=== PATIENT | female | born 1930 | race Native Hawaiian/Other Pacific Islander ===

== ENCOUNTER 2017-03-26 14:31 | Outpatient (CLI) | payer OTHER, MEDICARE ==
[~2017-03-26 14:31] MED LIST: CITA20TA2 PO; DILTIAZEM240 M1 PO; METF500T PO; METOPROLOL25 M1 OR; SIMV20TA2 PO; WARF5TAB6 PO
[2017-03-26] MEDS ORDERED: ALPR0.2566 PO (14:54)
== END 2017-03-26 14:40 | disposition short-term general hospital (02) ==
LOC: AMB 14:31
DX: R00.2 Palpitations (principal)
CPT/HCPCS: A0425; A0427

== ENCOUNTER 2017-03-26 14:49 | Emergency (ER) | payer OTHER, MEDICARE ==
[~2017-03-26] VITALS: Ht 160 cm; Wt 68.9 kg
[2017-03-26 14:40] VITALS: TEMP 98.3
[2017-03-26] MEDS ORDERED: ALPR0.2566 PO (14:54)
[2017-03-26 15:29] LABS: PLATELET COUNT 226 K/uL (152-353)
[2017-03-26 15:33] LABS: POTASSIUM 3.2 mmol/L (3.6-5.2)
[2017-03-26 15:37] LABS: PARTIAL THROMBOPLASTIN TIME 27.8 SECONDS (24.5-33.6)
[2017-03-26 17:00] VITALS: BP 177/83
== END 2017-03-26 17:00 | disposition home or self-care (01) ==
LOC: ED 14:49
DX: R00.0 Tachycardia, unspecified (principal); R06.02 Shortness of breath
CPT/HCPCS: 36415; 80053; 81000; 82550; 84484; 85027; 85610; 85730; 93005; 96374; 99284; J3490

== ENCOUNTER 2018-09-20 11:21 | Inpatient (IN) | payer OTHER ==
[~2018-09-20 11:21] MED LIST changes: +ALPR0.2566 PO
== END 2018-09-24 11:37 | disposition still patient (30) ==
LOC: PAVB 11:21
PROVIDERS: ADMIT Internal Medicine

== ENCOUNTER 2018-09-21 06:14 | Outpatient (CLI) | payer OTHER ==
[2018-09-21 08:19] LABS: PLATELET COUNT 191 K/uL (152-353)
== END 2018-09-21 22:25 | disposition home or self-care (01) ==
LOC: RAD 06:14
PROVIDERS: Internal Medicine
DX: I10 Essential (primary) hypertension (principal); E11.9 Type 2 diabetes mellitus without complications; I48.2 Chronic atrial fibrillation; F32.9 Major depressive disorder, single episode, unspecified; E78.00 Pure hypercholesterolemia, unspecified; G25.81 Restless legs syndrome
CPT/HCPCS: 36415; 83036; 85027; 85610; 87081

== ENCOUNTER 2018-09-21 09:55 | Outpatient (CLI) | payer OTHER | END 2018-09-21 22:27 | disposition home or self-care (01) | LOC: RAD 09:55 | DX: Z13.820 Encounter for screening for osteoporosis (principal); N95.8 Other specified menopausal and perimenopausal disorders ==

== ENCOUNTER 2018-09-22 06:55 | Outpatient (CLI) | payer OTHER ==
[2018-09-22 13:23] LABS: POTASSIUM 3.4 mmol/L (3.6-5.2)
== END 2018-09-22 19:50 | disposition home or self-care (01) ==
LOC: LAB 06:55
PROVIDERS: Internal Medicine
DX: I10 Essential (primary) hypertension (principal); E11.8 Type 2 diabetes mellitus with unspecified complications; I48.2 Chronic atrial fibrillation; F32.9 Major depressive disorder, single episode, unspecified; E78.00 Pure hypercholesterolemia, unspecified; G25.81 Restless legs syndrome
CPT/HCPCS: 80053; 80061; 82306; 82607; 82728; 83540; 84443

== ENCOUNTER 2018-09-24 06:34 | Outpatient (CLI) | payer OTHER, MEDICARE | END 2018-09-24 23:25 | disposition home or self-care (01) | LOC: LAB 06:34 | DX: I48.0 Paroxysmal atrial fibrillation (principal); Z51.81 Encounter for therapeutic drug level monitoring; Z79.899 Other long term (current) drug therapy | CPT/HCPCS: 85610 ==

== ENCOUNTER 2018-09-24 11:54 | Inpatient (IN) | payer OTHER | END 2018-10-24 12:45 | disposition still patient (30) | LOC: PAVB 11:54 | PROVIDERS: ADMIT Internal Medicine ==

== ENCOUNTER 2018-10-01 06:20 | Outpatient (CLI) | payer OTHER, MEDICARE | END 2018-10-01 22:54 | disposition home or self-care (01) | LOC: LAB 06:20 | DX: Z79.899 Other long term (current) drug therapy (principal); I48.91 Unspecified atrial fibrillation | CPT/HCPCS: 85610 ==

== ENCOUNTER 2018-10-24 13:36 | Inpatient (IN) | payer OTHER | END 2018-11-24 08:42 | disposition still patient (30) | LOC: PAVB 13:36 | PROVIDERS: ADMIT Internal Medicine | DX: Z51.89 Encounter for other specified aftercare (principal) ==

== ENCOUNTER 2018-10-25 06:48 | Outpatient (CLI) | payer OTHER, MEDICARE | END 2018-10-25 19:46 | disposition home or self-care (01) | LOC: LAB 06:48 | DX: Z79.899 Other long term (current) drug therapy (principal); I48.2 Chronic atrial fibrillation | CPT/HCPCS: 85610 ==

== ENCOUNTER 2018-11-24 08:59 | Inpatient (IN) | payer OTHER | END 2018-12-24 09:42 | disposition still patient (30) | LOC: PAVB 08:59 | PROVIDERS: ADMIT Internal Medicine ==

== ENCOUNTER 2018-11-28 05:26 | Outpatient (CLI) | payer OTHER, MEDICARE | END 2018-11-28 23:23 | disposition home or self-care (01) | LOC: LAB 05:26 | DX: E03.8 Other specified hypothyroidism (principal); E11.40 Type 2 diabetes mellitus with diabetic neuropathy, unspecified; I48.2 Chronic atrial fibrillation | CPT/HCPCS: 83036; 84443; 85610 ==

== ENCOUNTER 2018-12-24 10:13 | Inpatient (IN) | payer OTHER | END 2019-01-24 10:39 | disposition still patient (30) | LOC: PAVB 10:13 | PROVIDERS: ADMIT Internal Medicine ==

== ENCOUNTER 2018-12-26 05:45 | Outpatient (CLI) | payer OTHER, MEDICARE | END 2018-12-26 19:14 | disposition home or self-care (01) | LOC: LAB 05:45 | PROVIDERS: Internal Medicine | DX: E78.49 Other hyperlipidemia (principal); E55.9 Vitamin D deficiency, unspecified; Z51.81 Encounter for therapeutic drug level monitoring | CPT/HCPCS: 80061; 82306; 85610 ==

== ENCOUNTER 2019-01-24 11:42 | Inpatient (IN) | payer OTHER | END 2019-02-24 16:30 | disposition still patient (30) | LOC: PAVB 11:42 | PROVIDERS: ADMIT Internal Medicine ==

== ENCOUNTER 2019-01-25 07:50 | Outpatient (CLI) | payer OTHER | END 2019-01-25 21:37 | disposition home or self-care (01) | LOC: LAB 07:50 | DX: Z51.81 Encounter for therapeutic drug level monitoring (principal) | CPT/HCPCS: 36415; 85610 ==

== ENCOUNTER 2019-02-24 16:45 | Inpatient (IN) | payer OTHER | END 2019-03-26 09:36 | disposition still patient (30) | LOC: PAVB 16:45 | PROVIDERS: ADMIT Internal Medicine ==

== ENCOUNTER 2019-02-26 08:24 | Outpatient (CLI) | payer OTHER ==
[2019-02-26 08:50] LABS: PLATELET COUNT 205 K/uL (152-353)
[2019-02-26 08:51] LABS: POTASSIUM 3.1 mmol/L (3.6-5.2)
== END 2019-02-26 22:49 | disposition home or self-care (01) ==
LOC: LAB 08:24
PROVIDERS: Internal Medicine
DX: I10 Essential (primary) hypertension (principal); E11.9 Type 2 diabetes mellitus without complications; I48.0 Paroxysmal atrial fibrillation; Z51.81 Encounter for therapeutic drug level monitoring
CPT/HCPCS: 80053; 83036; 85027; 85610

== ENCOUNTER 2019-03-09 06:37 | Outpatient (CLI) | payer OTHER | END 2019-03-09 23:30 | disposition home or self-care (01) | LOC: LAB 06:37 | DX: R39.81 Functional urinary incontinence (principal) | CPT/HCPCS: 81000 ==

== ENCOUNTER 2019-03-11 06:02 | Outpatient (CLI) | payer OTHER | END 2019-03-11 20:20 | disposition home or self-care (01) | LOC: LAB 06:02 | DX: E87.6 Hypokalemia (principal); E83.49 Other disorders of magnesium metabolism | CPT/HCPCS: 36415; 83735 ==

== ENCOUNTER 2019-03-15 06:02 | Outpatient (CLI) | payer OTHER ==
[2019-03-15 08:24] LABS: POTASSIUM 4.4 mmol/L (3.6-5.2)
== END 2019-03-15 19:18 | disposition home or self-care (01) ==
LOC: LAB 06:02
PROVIDERS: Internal Medicine
DX: E87.6 Hypokalemia (principal)
CPT/HCPCS: 36415; 80048

== ENCOUNTER 2019-03-26 11:59 | Inpatient (IN) | payer OTHER | END 2019-04-26 11:14 | disposition still patient (30) | LOC: PAVB 11:59 | PROVIDERS: ADMIT Internal Medicine ==

== ENCOUNTER 2019-03-27 08:52 | Outpatient (CLI) | payer OTHER | END 2019-03-27 23:49 | disposition home or self-care (01) | LOC: LABW 08:52 | DX: Z79.899 Other long term (current) drug therapy (principal); I48.0 Paroxysmal atrial fibrillation; Z51.81 Encounter for therapeutic drug level monitoring | CPT/HCPCS: 85610 ==

== ENCOUNTER 2019-04-02 00:22 | Outpatient (CLI) | payer OTHER | END 2019-04-02 20:06 | disposition home or self-care (01) | LOC: LAB 00:22 | DX: Z51.81 Encounter for therapeutic drug level monitoring (principal) | CPT/HCPCS: 36415; 85610 ==

== ENCOUNTER 2019-04-16 04:49 | Outpatient (CLI) | payer OTHER | END 2019-04-16 18:56 | disposition home or self-care (01) | LOC: LAB 04:49 | DX: Z51.81 Encounter for therapeutic drug level monitoring (principal) | CPT/HCPCS: 36415; 85610 ==

== ENCOUNTER 2019-04-26 12:07 | Inpatient (IN) | payer OTHER | END 2019-05-26 08:00 | disposition still patient (30) | LOC: PAVB 12:07 | PROVIDERS: ADMIT Internal Medicine ==

== ENCOUNTER 2019-04-29 11:05 | Outpatient (CLI) | payer OTHER | END 2019-04-29 19:18 | disposition home or self-care (01) | LOC: LAB 11:05 | DX: I48.0 Paroxysmal atrial fibrillation (principal); Z51.81 Encounter for therapeutic drug level monitoring | CPT/HCPCS: 85610 ==

== ENCOUNTER 2019-05-26 10:10 | Inpatient (IN) | payer OTHER | END 2019-06-26 09:05 | disposition still patient (30) | LOC: PAVB 10:10 | PROVIDERS: ADMIT Internal Medicine ==

== ENCOUNTER 2019-06-18 06:47 | Outpatient (CLI) | payer OTHER, MEDICARE | END 2019-06-18 19:03 | disposition home or self-care (01) | LOC: LAB 06:47 | DX: Z51.81 Encounter for therapeutic drug level monitoring (principal) | CPT/HCPCS: 85610 ==

== ENCOUNTER 2019-06-22 04:50 | Outpatient (CLI) | payer OTHER | END 2019-06-22 20:48 | disposition home or self-care (01) | LOC: LAB 04:50 | DX: I48.20 Chronic atrial fibrillation, unspecified (principal) | CPT/HCPCS: 85610 ==

== ENCOUNTER 2019-06-26 09:19 | Inpatient (IN) | payer OTHER | END 2019-07-27 10:00 | disposition still patient (30) | LOC: PAVB 09:19 | PROVIDERS: ADMIT Internal Medicine ==

== ENCOUNTER 2019-07-01 04:48 | Outpatient (CLI) | payer OTHER | END 2019-07-01 22:30 | disposition home or self-care (01) | LOC: LAB 04:48 | DX: I48.20 Chronic atrial fibrillation, unspecified (principal); Z79.899 Other long term (current) drug therapy | CPT/HCPCS: 85610 ==

== ENCOUNTER 2019-07-27 10:18 | Inpatient (IN) | payer OTHER | END 2019-08-25 13:19 | disposition still patient (30) | LOC: PAVB 10:18 | PROVIDERS: ADMIT Internal Medicine ==

== ENCOUNTER 2019-08-01 06:38 | Outpatient (CLI) | payer OTHER | END 2019-08-01 19:35 | disposition home or self-care (01) | LOC: LAB 06:38 | DX: I48.20 Chronic atrial fibrillation, unspecified (principal) | CPT/HCPCS: 85610 ==

== ENCOUNTER 2019-08-03 12:13 | Emergency (ER) | payer OTHER ==
[~2019-08-03] VITALS: Ht 157.5 cm; Wt 68.0 kg
[2019-08-03 12:36] LABS: PLATELET COUNT 261 K/uL (152-353)
[2019-08-03 12:46] LABS: SODIUM 129 mmol/L (136-145)
[2019-08-03 14:29] VITALS: TEMP 98
[2019-08-03 14:30] VITALS: BP 124/59
== END 2019-08-03 14:30 | disposition home or self-care (01) ==
LOC: ED 12:13
PROVIDERS: Emergency Medicine
DX: E87.1 Hypo-osmolality and hyponatremia (principal); G45.9 Transient cerebral ischemic attack, unspecified
CPT/HCPCS: 36415; 80053; 81000; 82550; 82553; 84484; 85027; 93005; 96360; 96365; 99284

== ENCOUNTER 2019-08-25 13:39 | Inpatient (IN) | payer OTHER | END 2019-09-25 09:49 | disposition still patient (30) | LOC: PAVB 13:39 | PROVIDERS: ADMIT Internal Medicine ==

== ENCOUNTER 2019-08-26 06:16 | Outpatient (CLI) | payer OTHER ==
[2019-08-26 06:45] LABS: PLATELET COUNT 214 K/uL (152-353)
[2019-08-26 07:00] LABS: POTASSIUM 4.3 mmol/L (3.6-5.2)
== END 2019-08-26 19:09 | disposition home or self-care (01) ==
LOC: LAB 06:16
PROVIDERS: Internal Medicine
DX: I10 Essential (primary) hypertension (principal); E11.9 Type 2 diabetes mellitus without complications; I48.91 Unspecified atrial fibrillation
CPT/HCPCS: 80053; 80061; 83036; 85027; 85610

== ENCOUNTER 2019-09-25 11:24 | Inpatient (IN) | payer OTHER | END 2019-10-25 09:08 | disposition still patient (30) | LOC: PAVB 11:24 | PROVIDERS: ADMIT Internal Medicine ==

== ENCOUNTER 2019-10-25 11:09 | Inpatient (IN) | payer OTHER | END 2019-11-25 09:15 | disposition still patient (30) | LOC: PAVB 11:09 | PROVIDERS: ADMIT Internal Medicine | CPT/HCPCS: 87635; U0002 ==

== ENCOUNTER 2019-10-30 06:28 | Outpatient (CLI) | payer OTHER | END 2019-10-30 20:55 | disposition home or self-care (01) | LOC: LAB 06:28 | DX: I48.20 Chronic atrial fibrillation, unspecified (principal) | CPT/HCPCS: 85610 ==

== ENCOUNTER 2019-11-25 11:16 | Inpatient (IN) | payer OTHER | END 2019-12-25 10:24 | disposition still patient (30) | LOC: PAVB 11:16 | PROVIDERS: ADMIT Internal Medicine | CPT/HCPCS: 87635; U0002 ==

== ENCOUNTER 2019-11-26 06:02 | Outpatient (CLI) | payer OTHER | END 2019-11-26 19:05 | disposition home or self-care (01) | LOC: LAB 06:02 | DX: E11.9 Type 2 diabetes mellitus without complications (principal); I48.20 Chronic atrial fibrillation, unspecified | CPT/HCPCS: 83036; 85610 ==

== ENCOUNTER 2019-12-25 11:50 | Inpatient (IN) | payer OTHER | END 2020-01-25 09:11 | disposition still patient (30) | LOC: PAVB 11:50 | PROVIDERS: ADMIT Internal Medicine | CPT/HCPCS: 87635; U0002 ==

== ENCOUNTER 2019-12-26 06:49 | Outpatient (CLI) | payer OTHER | END 2019-12-26 19:52 | disposition home or self-care (01) | LOC: LAB 06:49 | DX: I48.20 Chronic atrial fibrillation, unspecified (principal) | CPT/HCPCS: 85610 ==

== ENCOUNTER 2020-01-25 09:28 | Inpatient (IN) | payer OTHER | END 2020-02-25 11:59 | disposition still patient (30) | LOC: PAVB 09:28 | PROVIDERS: ADMIT Internal Medicine | CPT/HCPCS: 87635; U0002; U0003 ==

== ENCOUNTER 2020-01-27 06:49 | Outpatient (CLI) | payer OTHER | END 2020-01-27 22:32 | disposition home or self-care (01) | LOC: LAB 06:49 | DX: I48.20 Chronic atrial fibrillation, unspecified (principal) | CPT/HCPCS: 85610 ==

== ENCOUNTER 2020-02-25 12:48 | Inpatient (IN) | payer OTHER | END 2020-03-26 11:03 | disposition still patient (30) | LOC: PAVB 12:48 | PROVIDERS: ADMIT Internal Medicine ==

== ENCOUNTER 2020-02-26 06:45 | Outpatient (CLI) | payer OTHER ==
[2020-02-26 08:11] LABS: PLATELET COUNT 185 K/uL (152-353)
[2020-02-26 08:18] LABS: POTASSIUM 4.1 mmol/L (3.6-5.2)
== END 2020-02-26 23:53 | disposition home or self-care (01) ==
LOC: LAB 06:45
PROVIDERS: Internal Medicine
DX: I48.20 Chronic atrial fibrillation, unspecified (principal); I10 Essential (primary) hypertension; E11.9 Type 2 diabetes mellitus without complications; E78.49 Other hyperlipidemia
CPT/HCPCS: 80053; 83036; 85027; 85610

== ENCOUNTER 2020-03-26 11:21 | Inpatient (IN) | payer OTHER | END 2020-04-26 08:00 | disposition still patient (30) | LOC: PAVB 11:21 | PROVIDERS: ADMIT Internal Medicine ==

== ENCOUNTER 2020-03-30 07:14 | Outpatient (CLI) | payer OTHER | END 2020-03-30 23:36 | disposition home or self-care (01) | LOC: LAB 07:14 | DX: I48.20 Chronic atrial fibrillation, unspecified (principal) | CPT/HCPCS: 85610 ==

== ENCOUNTER 2020-04-26 09:00 | Inpatient (IN) | payer OTHER | END 2020-05-26 09:58 | disposition still patient (30) | LOC: PAVB 09:00 | PROVIDERS: ADMIT Internal Medicine; ATTEND Internal Medicine ==

== ENCOUNTER 2020-04-28 08:11 | Outpatient (CLI) | payer OTHER | END 2020-04-28 23:28 | disposition home or self-care (01) | LOC: LAB 08:11 | DX: I48.20 Chronic atrial fibrillation, unspecified (principal); Z79.01 Long term (current) use of anticoagulants | CPT/HCPCS: 85610 ==

== ENCOUNTER 2020-05-26 10:56 | Inpatient (IN) | payer OTHER | END 2020-06-26 09:02 | disposition still patient (30) | LOC: PAVB 10:56 | PROVIDERS: ADMIT Internal Medicine; ATTEND Internal Medicine ==

== ENCOUNTER 2020-05-27 10:04 | Outpatient (CLI) | payer OTHER | END 2020-05-27 19:55 | disposition home or self-care (01) | LOC: LAB 10:04 | PROVIDERS: ATTEND Internal Medicine | DX: I48.20 Chronic atrial fibrillation, unspecified (principal); E11.9 Type 2 diabetes mellitus without complications | CPT/HCPCS: 83036; 85610 ==

== ENCOUNTER 2020-06-26 09:12 | Inpatient (IN) | payer OTHER | END 2020-07-27 14:55 | disposition still patient (30) | LOC: PAVB 09:12 | PROVIDERS: ADMIT Internal Medicine; ATTEND Internal Medicine ==

== ENCOUNTER 2020-07-01 15:45 | Outpatient (CLI) | payer OTHER | END 2020-07-01 21:49 | disposition home or self-care (01) | LOC: LAB 15:45 | PROVIDERS: ATTEND Internal Medicine | DX: I48.20 Chronic atrial fibrillation, unspecified (principal) | CPT/HCPCS: 85610 ==

== ENCOUNTER 2020-07-17 15:47 | Outpatient (CLI) | payer OTHER | END 2020-07-17 20:01 | disposition home or self-care (01) | LOC: LAB 15:47 | PROVIDERS: ATTEND Internal Medicine | DX: R10.84 Generalized abdominal pain (principal); R53.83 Other fatigue; E53.8 Deficiency of other specified B group vitamins | CPT/HCPCS: 82607 ==

== ENCOUNTER 2020-07-27 15:04 | Inpatient (IN) | payer OTHER | END 2020-08-24 09:54 | disposition still patient (30) | LOC: PAVB 15:04 | PROVIDERS: ADMIT Internal Medicine; ATTEND Internal Medicine ==

== ENCOUNTER 2020-07-28 07:21 | Outpatient (CLI) | payer OTHER | END 2020-07-28 19:32 | disposition home or self-care (01) | LOC: LAB 07:21 | PROVIDERS: ATTEND Internal Medicine | DX: I48.20 Chronic atrial fibrillation, unspecified (principal) | CPT/HCPCS: 85610 ==

== ENCOUNTER 2020-08-24 10:08 | Inpatient (IN) | payer OTHER | END 2020-09-24 10:00 | disposition still patient (30) | LOC: PAVB 10:08 | PROVIDERS: ADMIT Internal Medicine; ATTEND Internal Medicine ==

== ENCOUNTER 2020-08-25 07:43 | Outpatient (CLI) | payer OTHER ==
[2020-08-25 09:10] LABS: POTASSIUM 4.3 mmol/L (3.6-5.2)
[2020-08-25 09:18] LABS: PLATELET COUNT 204 K/uL (152-353)
== END 2020-08-25 19:33 | disposition home or self-care (01) ==
LOC: LAB 07:43
PROVIDERS: ATTEND Internal Medicine
DX: I48.20 Chronic atrial fibrillation, unspecified (principal); I10 Essential (primary) hypertension; E11.9 Type 2 diabetes mellitus without complications; E78.49 Other hyperlipidemia
CPT/HCPCS: 80053; 83036; 85027; 85610

== ENCOUNTER 2020-09-24 10:28 | Inpatient (IN) | payer OTHER | END 2020-10-24 10:50 | disposition still patient (30) | LOC: PAVB 10:28 | PROVIDERS: ADMIT Internal Medicine; ATTEND Internal Medicine ==

== ENCOUNTER 2020-09-25 11:49 | Outpatient (CLI) | payer OTHER | END 2020-09-25 19:26 | disposition home or self-care (01) | LOC: LAB 11:49 | PROVIDERS: ATTEND Internal Medicine | DX: I48.20 Chronic atrial fibrillation, unspecified (principal) | CPT/HCPCS: 85610 ==

== ENCOUNTER 2020-10-05 14:35 | Outpatient (CLI) | payer OTHER | END 2020-10-05 20:52 | disposition home or self-care (01) | LOC: LAB 14:35 | PROVIDERS: ATTEND Internal Medicine | DX: S69.81XA Other specified injuries of right wrist, hand and finger(s), initial encounter (principal) ==

== ENCOUNTER 2020-10-24 11:03 | Inpatient (IN) | payer OTHER | END 2020-11-24 14:38 | disposition still patient (30) | LOC: PAVB 11:03 | PROVIDERS: ADMIT Internal Medicine; ATTEND Internal Medicine ==

== ENCOUNTER 2020-10-25 12:42 | Outpatient (CLI) | payer OTHER | END 2020-10-25 19:20 | disposition home or self-care (01) | LOC: LAB 12:42 | PROVIDERS: ATTEND Internal Medicine | DX: I48.20 Chronic atrial fibrillation, unspecified (principal); Z79.01 Long term (current) use of anticoagulants | CPT/HCPCS: 85610 ==

== ENCOUNTER 2020-11-24 14:49 | Inpatient (IN) | payer OTHER | END 2020-12-24 08:00 | disposition still patient (30) | LOC: PAVB 14:49 | PROVIDERS: ADMIT Internal Medicine; ATTEND Internal Medicine ==

== ENCOUNTER 2020-11-26 07:19 | Outpatient (CLI) | payer OTHER | END 2020-11-26 22:41 | disposition home or self-care (01) | LOC: LAB 07:19 | PROVIDERS: ATTEND Internal Medicine | DX: I48.20 Chronic atrial fibrillation, unspecified (principal); E11.9 Type 2 diabetes mellitus without complications | CPT/HCPCS: 83036; 85610 ==

== ENCOUNTER 2020-12-21 05:45 | Outpatient (CLI) | payer OTHER | END 2020-12-21 23:59 | disposition home or self-care (01) | LOC: LAB 05:45 | PROVIDERS: ATTEND Internal Medicine | DX: I10 Essential (primary) hypertension (principal); Z79.899 Other long term (current) drug therapy | CPT/HCPCS: 36415; 84132 ==

== ENCOUNTER 2020-12-24 09:00 | Inpatient (IN) | payer OTHER | END 2021-01-24 08:00 | disposition still patient (30) | LOC: PAVB 09:00 | PROVIDERS: ADMIT Internal Medicine; ATTEND Internal Medicine ==

== ENCOUNTER 2020-12-29 08:41 | Outpatient (CLI) | payer OTHER | END 2020-12-29 19:10 | disposition home or self-care (01) | LOC: LAB 08:41 | PROVIDERS: ATTEND Internal Medicine | DX: I48.20 Chronic atrial fibrillation, unspecified (principal) | CPT/HCPCS: 85610 ==

== ENCOUNTER 2021-01-07 08:19 | Emergency (ER) | payer OTHER ==
[~2021-01-07] VITALS: Ht 157.5 cm; Wt 75.5 kg
[2021-01-07 08:19] VITALS: TEMP 97.9
[2021-01-07 08:59] LABS: PLATELET COUNT 216 K/uL (152-353)
[2021-01-07 09:06] LABS: POTASSIUM 4.7 mmol/L (3.6-5.2); SODIUM 131 mmol/L (136-145)
[2021-01-07 09:24] LABS: PARTIAL THROMBOPLASTIN TIME 34.1 SECONDS (24.5-33.6)
[2021-01-07 10:37] VITALS: BP 110/57
== END 2021-01-07 10:37 ==
LOC: ED 08:28
PROVIDERS: Emergency Medicine
DX: E87.1 Hypo-osmolality and hyponatremia (principal); F03.90 Unspecified dementia, unspecified severity, without behavioral disturbance, psychotic disturbance, mood disturbance, and anxiety; I48.91 Unspecified atrial fibrillation; Z79.01 Long term (current) use of anticoagulants
CPT/HCPCS: 80053; 82550; 83880; 84484; 85027; 85379; 85610; 85730; 93005; 94664; 99283

== ENCOUNTER 2021-01-24 09:00 | Inpatient (IN) | payer OTHER | END 2021-02-24 10:17 | disposition still patient (30) | LOC: PAVB 09:00 | PROVIDERS: ADMIT Internal Medicine; ATTEND Internal Medicine ==

== ENCOUNTER 2021-01-25 08:54 | Outpatient (CLI) | payer OTHER | END 2021-01-25 22:36 | disposition home or self-care (01) | LOC: LAB 08:54 | PROVIDERS: ATTEND Internal Medicine | DX: I48.20 Chronic atrial fibrillation, unspecified (principal) | CPT/HCPCS: 85610 ==

== ENCOUNTER 2021-02-24 12:59 | Inpatient (IN) | payer OTHER | END 2021-03-26 08:41 | disposition still patient (30) | LOC: PAVB 12:59 | PROVIDERS: ADMIT Internal Medicine; ATTEND Internal Medicine ==

== ENCOUNTER 2021-02-26 07:18 | Outpatient (CLI) | payer OTHER ==
[2021-02-26 08:49] LABS: POTASSIUM 4.1 mmol/L (3.6-5.2)
== END 2021-02-26 18:56 | disposition home or self-care (01) ==
LOC: LAB 07:18
PROVIDERS: ATTEND Internal Medicine
DX: E11.9 Type 2 diabetes mellitus without complications (principal); E78.49 Other hyperlipidemia; I48.20 Chronic atrial fibrillation, unspecified; I10 Essential (primary) hypertension
CPT/HCPCS: 80053; 83036; 85610

== ENCOUNTER 2021-03-26 09:56 | Outpatient (CLI) | payer OTHER | END 2021-03-26 19:05 | disposition home or self-care (01) | LOC: LAB 09:56 | PROVIDERS: ATTEND Internal Medicine | DX: I48.20 Chronic atrial fibrillation, unspecified (principal) | CPT/HCPCS: 85610 ==

== ENCOUNTER 2021-04-26 07:28 | Outpatient (CLI) | payer OTHER | END 2021-04-26 19:17 | disposition home or self-care (01) | LOC: LAB 07:28 | PROVIDERS: ATTEND Internal Medicine | DX: I48.20 Chronic atrial fibrillation, unspecified (principal) | CPT/HCPCS: 36415; 85610 ==

== ENCOUNTER 2021-05-26 07:14 | Outpatient (CLI) | payer OTHER | END 2021-05-26 20:10 | disposition home or self-care (01) | LOC: LAB 07:14 | PROVIDERS: ATTEND Internal Medicine | DX: E11.9 Type 2 diabetes mellitus without complications (principal); I48.20 Chronic atrial fibrillation, unspecified | CPT/HCPCS: 36415; 83036; 85610 ==

== ENCOUNTER 2021-05-26 10:20 | Inpatient (IN) | payer OTHER | END 2021-06-26 08:21 | disposition still patient (30) | LOC: PAVB 10:20 | PROVIDERS: ADMIT Internal Medicine; ATTEND Internal Medicine ==

== ENCOUNTER 2021-06-26 08:44 | Inpatient (IN) | payer OTHER | END 2021-07-27 09:29 | disposition still patient (30) | LOC: PAVB 08:44 | PROVIDERS: ADMIT Internal Medicine; ATTEND Internal Medicine ==

== ENCOUNTER 2021-06-29 06:58 | Outpatient (CLI) | payer OTHER | END 2021-06-29 18:49 | disposition home or self-care (01) | LOC: LAB 06:58 | PROVIDERS: ATTEND Internal Medicine | DX: Z79.01 Long term (current) use of anticoagulants (principal) | CPT/HCPCS: 85610 ==

== ENCOUNTER 2021-07-27 07:22 | Outpatient (CLI) | payer OTHER | END 2021-07-27 19:21 | disposition home or self-care (01) | LOC: LAB 07:22 | PROVIDERS: ATTEND Internal Medicine | DX: I48.20 Chronic atrial fibrillation, unspecified (principal) | CPT/HCPCS: 85610 ==

== ENCOUNTER 2021-07-27 13:53 | Inpatient (IN) | payer OTHER | END 2021-08-24 08:57 | disposition still patient (30) | LOC: PAVB 13:53 | PROVIDERS: ADMIT Internal Medicine; ATTEND Internal Medicine ==

== ENCOUNTER 2021-08-25 08:12 | Outpatient (CLI) | payer OTHER ==
[2021-08-25 09:18] LABS: PLATELET COUNT 106 K/uL (152-353)
== END 2021-08-25 19:23 | disposition home or self-care (01) ==
LOC: LAB 08:12
PROVIDERS: ATTEND Internal Medicine
DX: E11.9 Type 2 diabetes mellitus without complications (principal); E78.49 Other hyperlipidemia; I48.20 Chronic atrial fibrillation, unspecified; I10 Essential (primary) hypertension
CPT/HCPCS: 80053; 80061; 83036; 85027; 85610